=== PATIENT | female | born 1955 | race Caucasian/White ===

== ENCOUNTER 2018-03-22 08:55 | Outpatient (CLI) | payer OTHER ==
[~2018-03-22 08:55] MED LIST: TRAMADOL HCL-AP1 TAB PO
== END 2018-03-22 09:04 | disposition home or self-care (01) ==
LOC: LAB 08:55
DX: L29.0 Pruritus ani (principal); Z01.419 Encounter for gynecological examination (general) (routine) without abnormal findings

== ENCOUNTER 2018-09-28 07:29 | Outpatient (CLI) | payer OTHER | END 2018-09-28 07:51 | disposition home or self-care (01) | LOC: LAB 07:29 | DX: A63.0 Anogenital (venereal) warts (principal); Z12.11 Encounter for screening for malignant neoplasm of colon; K57.30 Diverticulosis of large intestine without perforation or abscess without bleeding; I10 Essential (primary) hypertension; E78.2 Mixed hyperlipidemia; E04.1 Nontoxic single thyroid nodule; E03.8 Other specified hypothyroidism; E73.8 Other lactose intolerance ==